=== PATIENT | male | born 1960 | race Caucasian/White ===

== ENCOUNTER → 2021-10-14 11:51 | Outpatient (CLI) | payer OTHER, SELFPAY ==
--- NOTE | ~2021-10-14 | US_ITS ---
US abdomen limited INDICATION: Gallstones. PROCEDURE: Realtime right upper abdominal ultrasound. COMPARISON: No prior studies for comparison. FINDINGS: The pancreas not well visualized, although grossly unremarkable.. There are several liver cysts, largest measuring 1.7 cm. There is normal directional flow in the portal vein. The gallbladder is normal without stones, gallbladder wall thickening or pericholecystic fluid. Comm on bile duct measures 4 mm. No sonographic Arriaza's sign. Right renal echotexture is unremarkable. IMPRESSION: 1: Liver cysts, largest measuring up to 1.7 cm. Reviewed, dictated and finalized at location A. PUBLIC RELATIONS
== END ==
PROVIDERS: PCP Family Medicine; Visit Provider Family Medicine
DX: K80.20 Calculus of gallbladder without cholecystitis without obstruction (principal); K76.89 Other specified diseases of liver
CPT/HCPCS: 76705